=== PATIENT | female | born 1975 | race Asian ===

== ENCOUNTER 2016-10-06 05:56 | Inpatient (IN) | payer SELFPAY ==
[~2016-10-06] VITALS: Ht 152.4 cm; Wt 65.0 kg
[2016-10-06] MEDS ORDERED: LACTATED RINGERS 1,000 ML IV SCH (06:11)
[2016-10-06] MEDS ORDERED: IRON65TA11 PO (06:11)
[2016-10-06] MEDS ORDERED: CARBOPROST 250 MCG/ML AMP IM PRN (06:15)
[2016-10-06] MEDS ORDERED: METHYLERGONOVINE 0.2 MG/ML AMP IM PRN ×2 (06:15→10:05)
[2016-10-06 06:38] LABS: BASOPHILS # (AUTO) 0.1 K/uL (0.00-0.22); EOSINOPHILS # (AUTO) 0.1 K/uL (0-0.4); EOSINOPHILS % (AUTO) 1.4 % (0.0-4.0); HEMATOCRIT 41.4 % (36-48); HEMOGLOBIN 13.9 g/dL (12.0-16.0); LYMPHOCYTES # (AUTO) 1.4 K/uL (2.5-16.5); LYMPHOCYTES % (AUTO) 13.5 % (20.5-51.1); MEAN CORPUSCULAR HEMOGLOBIN 34 pg (27-31); MEAN CORPUSCULAR HGB CONC 34 g/dL (33-37); MEAN CORPUSCULAR VOLUME 101 fL (80-94); MONOCYTES # (AUTO) 0.8 K/uL (0.8-1.0); MONOCYTES % (AUTO) 7.6 % (1.7-9.3); NEUTROPHILS # (AUTO) 7.7 K/uL (1.8-7.7); NEUTROPHILS % (AUTO) 76.5 % (42.2-75.2); PLATELET COUNT (AUTO) 178 K/uL (140-450); RED BLOOD CELL COUNT(AUTO) 4.11 MIL/uL (4.20-5.40); WHITE BLOOD COUNT (AUTO) 10.1 K/uL (4.8-10.8)
[2016-10-06] MEDS ORDERED: MIDAZOLAM 2 MG/2 ML VIAL ONE (06:47)
[2016-10-06] MEDS ORDERED: MORPHINE PRES FREE 10 MG/10 ML AMP IV ONE (06:47)
[2016-10-06] MEDS ORDERED: BUPIVACAINE-MPF 0.75% 10 ML VIAL INJ ONE (06:50)
[2016-10-06] MEDS ORDERED: OXYTOCIN 10 UNITS/ML VIAL ONE ×2 (06:50→07:18)
[2016-10-06] MEDS ORDERED: ceFAZolin 1,000 MG VIAL ONE (07:00)
[2016-10-06 07:17] VITALS: BP 95/58
[2016-10-06] MEDS ORDERED: TRIAMCINOLONE 10 MG/ML 5ML VIAL ONE (07:18)
[2016-10-06] MEDS ORDERED: TRIAMCINOLONE 40 MG/ML 5ML VIAL ONE (07:18)
[2016-10-06] MEDS ORDERED: OXYTOCIN 20 UNITS/LR PREMIX 1,000 ML IV SCH (07:23)
[2016-10-06] MEDS ORDERED: HYDROmorphone 1 MG/ML AMP IVP PRN (07:25)
[2016-10-06] MEDS ORDERED: MEPERIDINE 25 MG/ML SYR IVP PRN (07:25)
[2016-10-06] MEDS ORDERED: NALOXONE 0.4 MG/ML VIAL IVP PRN ×3 (07:25)
[2016-10-06] MEDS ORDERED: ONDANSETRON 4 MG/2 ML VIAL IVP PRN ×2 (07:25)
[2016-10-06] MEDS ORDERED: NALBUPHINE 10 MG/ML AMP IVP PRN (07:25)
[2016-10-06] MEDS ORDERED: diphenhydrAMINE 50 MG/ML VIAL IVP PRN ×2 (07:25)
[2016-10-06 07:44] LABS: HIV RAPID SCREEN NON-REACTIVE (NON REACTIV)
[2016-10-06] MEDS ORDERED: diphenhydrAMINE 50 MG/ML VIAL ONE (08:05)
[2016-10-06] MEDS ORDERED: OXYTOCIN 20 UNITS/LR PREMIX 1,000 ML IV ONE (08:05)
[2016-10-06] MEDS ORDERED: ONDANSETRON 4 MG/2 ML VIAL ONE (08:08)
[2016-10-06] MEDS ORDERED: TEMAZEPAM 15 MG CAP PO PRN (10:05)
[2016-10-06] MEDS ORDERED: MEASLES, MUMPS, AND RUBELLA 1 VIAL SQVAC PRN (10:05)
[2016-10-06] MEDS ORDERED: oxyCODONE/APAP 5/325 MG 1 TAB TAB PO PRN (10:05)
[2016-10-06] MEDS ORDERED: SIMETHICONE 80 MG TAB.CHEW PO PRN (10:05)
--- NOTE | 2016-10-06 10:10 | NUR ---
PATIENT HAS BEEN SCREENED AND CATEGORIZED LOW NUTRITION RISK. PATIENT WILL BE SEEN WITHIN 7 DAYS OF ADMISSION. 10/12/[address]
[2016-10-06] MEDS: KETOROLAC 30 MG/ML VIAL IM/IVP SCH ×3 (12:00→23:58)
[2016-10-06] MEDS: OXYTOCIN 20 UNITS/LR PREMIX 1,000 ML IV SCH (16:43)
[2016-10-06] MEDS: SENNA 8.6 MG TAB PO SCH (20:55)
[2016-10-07] MEDS: OXYTOCIN 20 UNITS/LR PREMIX 1,000 ML IV SCH (00:33)
[2016-10-07 06:52] LABS: BASOPHILS # (AUTO) 0.1 K/uL (0.00-0.22); BASOPHILS % (AUTO) 0.6 % (0.0-2.0); EOSINOPHILS # (AUTO) 0.3 K/uL (0-0.4); EOSINOPHILS % (AUTO) 1.8 % (0.0-4.0); HEMATOCRIT 37.4 % (36-48); HEMOGLOBIN 12.5 g/dL (12.0-16.0); LYMPHOCYTES # (AUTO) 1.4 K/uL (2.5-16.5); LYMPHOCYTES % (AUTO) 7.2 % (20.5-51.1); MEAN CORPUSCULAR HEMOGLOBIN 34 pg (27-31); MEAN CORPUSCULAR HGB CONC 33 g/dL (33-37); MEAN CORPUSCULAR VOLUME 102 fL (80-94); MONOCYTES # (AUTO) 1.2 K/uL (0.8-1.0); MONOCYTES % (AUTO) 6.1 % (1.7-9.3); NEUTROPHILS # (AUTO) 15.9 K/uL (1.8-7.7); NEUTROPHILS % (AUTO) 84.3 % (42.2-75.2); PLATELET COUNT (AUTO) 157 K/uL (140-450); RED BLOOD CELL COUNT(AUTO) 3.66 MIL/uL (4.20-5.40); RED CELL DISTRIBUTION WIDTH 12.3 % (11.6-13.7)
[2016-10-07 08:14] LABS: WHITE BLOOD COUNT (AUTO) 18.9 K/uL (4.8-10.8)
[2016-10-07 08:15] LABS: ANISOCYTOSIS 1+; POIKILOCYTOSIS 1+
[2016-10-07] MEDS ORDERED: SODIUM PHOSPHATE 118 ML ENEM RC SCH (09:00)
[2016-10-07] MEDS: IBUPROFEN 600 MG TAB PO PRN ×2 (12:16→21:30)
[2016-10-07 13:08] LABS: RAPID PLASMA REAGIN NON-REACTIVE (Non Reactiv)
[2016-10-07] MEDS ORDERED: BETHANECHOL 25 MG TAB PO PRN (13:10)
[2016-10-07] MEDS: SENNA 8.6 MG TAB PO SCH (21:25)
[2016-10-08] MEDS: SENNA 8.6 MG TAB PO SCH (21:00)
[2016-10-08] MEDS: IBUPROFEN 600 MG TAB PO PRN (21:16)
== END 2016-10-09 13:20 | disposition home or self-care (01) | DRG 765 ==
LOC: MLD 05:56 → MFCC 12:15
PROVIDERS: ADMIT Obstetrics & Gynecology; ATTEND Obstetrics & Gynecology
PROC: 10D00Z1 Extraction of Products of Conception, Low, Open Approach (ICD-10-PCS; principal; 2016-10-06 06:45)
PROC: 3E0234Z Introduction of Serum, Toxoid and Vaccine into Muscle, Percutaneous Approach (ICD-10-PCS; 2016-10-08)
DX: O99.284 Endocrine, nutritional and metabolic diseases complicating childbirth (principal); O24.92 Unspecified diabetes mellitus in childbirth; O99.42 Diseases of the circulatory system complicating childbirth; E07.9 Disorder of thyroid, unspecified; I51.9 Heart disease, unspecified; O09.523 Supervision of elderly multigravida, third trimester; Z3A.39 39 weeks gestation of pregnancy; Z23 Encounter for immunization
CPT/HCPCS: 36415; 85025; 86592; 86762; 86886; 86900; 86901; 87340; 90715; J0690; J1200; J1885; J2250; J2270; J2405; J2590; J3301; J3490; J7060; J7120